=== PATIENT | male | born 1995 | race Caucasian/White ===

== ENCOUNTER 2019-05-15 21:58 | Emergency (ER) | payer OTHER ==
[~2019-05-15] VITALS: Ht 182.9 cm; Wt 86.0 kg
[2019-05-15 22:06] VITALS: BP 147/74
[2019-05-15] MEDS ORDERED: HYDROcodone/APAP 5/325 TABLET ONE (22:53)
[2019-05-15] MEDS ORDERED: OXYMETAZOLINE NASAL SPRAY 0.05%,30ML ONE (22:54)
[2019-05-15] MEDS ORDERED: HYDROcodone/APAP 5/325 TABLET PO ONE (23:00)
[2019-05-15] MEDS ORDERED: OXYMETAZOLINE NASAL SPRAY 0.05%, 15ML NAS ONE (23:00)
== END 2019-05-16 00:03 | disposition home or self-care (01) ==
LOC: ED 05-16
DX: S02.2XXA Fracture of nasal bones, initial encounter for closed fracture (principal); S09.8XXA Other specified injuries of head, initial encounter; S01.21XA Laceration without foreign body of nose, initial encounter; W21.03XA Struck by baseball, initial encounter; Y93.79 Activity, other specified sports and athletics; Y92.320 Baseball field as the place of occurrence of the external cause; Y99.8 Other external cause status
CPT/HCPCS: 12011; 70160; 99283